=== PATIENT | male | born 1995 | race Caucasian/White ===

== ENCOUNTER 2018-03-11 02:52 | Emergency (ER) | payer BC, OTHER, SELFPAY ==
[2018-03-11 03:35] LABS: Hemoglobin 17.7 g/dL (14.0-18.0); Mean Corpuscular HGB CONC 35.5 g/dL (32.0-36.0); Mean Corpuscular Hemoglobin 29.6 pg (27.0-31.0); Mean Corpuscular Volume 83.2 fL (80.0-94.0); Mean Platelet Volume 9.3 fL (7.4-10.4); Platelet Count 187 thou/uL (130-400); RBC Distribution Width 10.9 % (11.5-14.5); White Blood Cell (WBC) Count 11.9 thou/uL (4.8-10.8)
[2018-03-11 03:36] LABS: #Basophils 0.1 thou/uL (0.0-0.2); #Lymphocytes 1.4 thou/uL (1.20-3.40); #Monocytes 0.4 thou/uL (0.11-0.59); #Neutrophils 10.1 thou/uL (1.40-6.50); %Basophils 0.5 % (0.0-1.0); %Eosinophils 0.2 % (0.0-10.0); %Lymphocytes 11.5 % (21.0-51.0); %Monocytes 3.5 % (0.0-10.0); %Neutrophils 84.4 % (42.0-75.0)
[2018-03-11 03:49] LABS: ALT (SGPT) 16 U/L (8-55); AST (SGOT) 19 U/L (5-34); Albumin 4.8 g/dL (3.5-5.0); Alkaline Phosphatase 80 U/L (40-150); Anion Gap 15 mmol/L (10-20); BUN (Urea Nitrogen) 13 mg/dL (8.9-20.6); Bilirubin, Total 0.7 mg/dL (0.2-1.2); Calc. Creatinine Clearance 0 mL/min (70-130); Carbon Dioxide 23 mmol/L (22-29); Chloride 104 mmol/L (98-107); Estimated GFR-MDRD 87; Globulin 2.7 g/dL (2.4-3.5); Glucose 156 mg/dL (70-105); Lipase 45 U/L (8-78); Potassium 3.4 mmol/L (3.5-5.1); Protein, Total 7.5 g/dL (6.0-8.3); Sodium 139 mmol/L (136-145)
[2018-03-11] MEDS ORDERED: Magnesium Citrate 300 ML BOT ONE (03:55)
--- NOTE | 2018-03-11 08:01 | RAD ---
ABDOMEN: DATE: 03/11/18. FINDINGS: Supine views of the abdomen show a large amount of fecal material in the colon. There is no overt ob struction. No dilation of small bowel was seen. No pathologic calcifications were detected. The simeon linda and soft tissues were unremarkable. IMPRESSION: Constipation. POS: HOME
== END 2018-03-11 03:58 | disposition home or self-care (01) ==
LOC: BURERS 02:52
DX: K59.00 Constipation, unspecified (principal); R12 Heartburn
CPT/HCPCS: 36415; 74018; 80053; 83690; 85025